=== PATIENT | female | born 1965 | race Caucasian/White ===

== ENCOUNTER 2017-11-25 06:44 | Day surgery (SDC) | payer BC ==
[~2017-11-25 06:44] MED LIST: Lactated Ringers 1,000 ML IV SCH
[2017-11-25] MEDS ORDERED: Propofol 200 MG/20 ML SDV ONE (07:48)
[2017-11-25] MEDS ORDERED: fentaNYL 100 MCG/2 ML SDV ONE (07:48)
[2017-11-25 08:53] VITALS: BP 106/73
--- NOTE | 2017-11-26 07:50 | OR ---
DATE OF SURGERY: 11/25/2017 REFERRING PROVIDER: Meredith Dixon PA-C. PRE-OPERATIVE DIAGNOSES: 1. Positive family history of colon cancer in mother at age 74 and also in a brother at age 50. 2. History of colon polyps. The patient reports 6 polyps at age 40. 3. History of Hodgkin lymphoma. POST-OPERATIVE DIAGNOSES: 1. Two small side by side polyps removed at 15 cm using hot snare. These were 4 mm and 2 mm in size. PROCEDURE: Colonoscopy with polypectomy x2 using hot snare. SURGEON: Sujit Purcell M.D. ANESTHESIA: Monitored anesthesia care. BOWEL PREP: Good. Celeste is a 52-year-old female who was brought to the endoscopy suite after discussing risks and benefits of the procedure. Informed consent was obtained for conscious sedation and colonoscopy with or without biopsy and/or polypectomy. We also discussed possibility of missed lesions. Pre-procedure exam was unremarkable. IV, oxygen, and monitors were placed. The patient was placed in the left lateral decubitus position. Sedation was administered and a digital rectal exam was performed which was unremarkable. Colonoscope was passed into the rectum and slowly advanced all the way to the cecum. Cecum was viewed and photographed. The colonoscope was slowly withdrawn and the mucosa was closed observed in a direct circumferential manner. The ascending colon was unremarkable. The transverse colon was unremarkable. The descending colon was unremarkable. The sigmoid colon was unremarkable except for the rectosigmoid junction. There were noted to be two small side by side polyps measuring 4 mm and 2 mm in size. These were removed using hot snare. Retroflexion was performed and rectal mucosa was unremarkable. Scope was removed. The patient tolerated the procedure well. The patient was monitored until that baseline status. Discharge instructions were reviewed and the patient was discharged in good condition. COMPLICATIONS: None. TOTAL TIME: 16 minutes. ESTIMATED BLOOD LOSS: None. RECOMMENDATIONS/FOLLOW-UP: We will await results of path report to determine ideal followup interval. I would like to kindly thank Meredith Dixon for this referral. DMB: 11/25/2017 08:24:26 MODL: 11/25/2017 08:45:59 /[id number]
== END 2017-11-25 09:20 | disposition home or self-care (01) ==
LOC: VM.SDS 06:44
PROVIDERS: ATTEND Family Medicine
DX: Z12.11 Encounter for screening for malignant neoplasm of colon (principal); D12.6 Benign neoplasm of colon, unspecified; Z80.0 Family history of malignant neoplasm of digestive organs; E78.5 Hyperlipidemia, unspecified; Z85.841 Personal history of malignant neoplasm of brain; Z79.899 Other long term (current) drug therapy; Z98.890 Other specified postprocedural states; Z86.010 Personal history of colon polyps; Z85.71 Personal history of Hodgkin lymphoma
CPT/HCPCS: 45385; J2704; J3010; J7120

== ENCOUNTER 2024-12-21 09:44 | Day surgery (SDC) | payer BC ==
[2024-12-21] MEDS: Lactated Ringers 1,000 ML IV SCH (10:05)
[2024-12-21] MEDS ORDERED: Propofol 200 MG/20 ML SDV ONE ×2 (10:09→10:54)
[2024-12-21] MEDS ORDERED: fentaNYL 100 MCG/2 ML SDV ONE (10:09)
[2024-12-21 12:39] VITALS: BP 113/67; PULSE 67
== END 2024-12-21 13:15 | disposition home or self-care (01) ==
LOC: VM.SDS 09:44
PROVIDERS: ATTEND Family Medicine
DX: Z12.11 Encounter for screening for malignant neoplasm of colon (principal); D12.0 Benign neoplasm of cecum; D12.6 Benign neoplasm of colon, unspecified; K63.5 Polyp of colon; Z80.0 Family history of malignant neoplasm of digestive organs; Z83.719 Family history of colon polyps, unspecified; Z86.0100 Personal history of colon polyps, unspecified; E78.2 Mixed hyperlipidemia; Z79.899 Other long term (current) drug therapy; Z88.0 Allergy status to penicillin
CPT/HCPCS: 00811; 45380; 45385; J2704; J3010; J7120